=== PATIENT | female | born 1985 | race Caucasian/White ===

== ENCOUNTER 2016-08-10 02:20 | Emergency (ER) | payer BC ==
[~2016-08-10] VITALS: Ht 160 cm; Wt 88.2 kg
[~2016-08-10 02:20] MED LIST: CLEOCIN300 MG PO; ESCITALOPRAM OX20 MG PO; MOTRIN800 MG PO
[2016-08-10 03:37] LABS: HEMATOCRIT 34.7 % (36.0-46.0); MCH 34.7 PG (29.0-34.0); MCHC 33.4 G/DL (30.0-36.0); MCV 103.9 FL (83-99); MEAN PLAT.VOLUME 10.9 uM^3 (9.5-12.4); PLATELET COUNT 107 K/uL (156-360); RBC DIS.WIDTH-CV 18.6 % (11.8-14.6); RED BLOOD COUNT 3.34 M/uL (3.80-5.20); WHITE BLOOD COUNT 2.2 K/uL (4.1-10.2)
[2016-08-10 03:43] LABS: ADD MIUA? YES; BILIRUBIN NEGATIVE; BLOOD LARGE; COLOR AMBER ((YELLOW)); GLUCOSE (STRIP) NEGATIVE; KETONES 20; LEUKOCYTES NEGATIVE; NITRITE POSITIVE; PROTEIN (STRIP) 30; SPECIFIC GRAVITY 1.024 (1.000-1.030)
[2016-08-10 03:44] LABS: CHLORIDE 107 mEq/L (99-109); POTASSIUM 3.5 mEq/L (3.7-5.4); SODIUM 138 mEq/L (136-147)
[2016-08-10 03:47] LABS: GLUCOSE 96 mg/dL (70-99)
[2016-08-10 03:48] LABS: ANION GAP 10 MEQ/L (2-14)
[2016-08-10 03:49] LABS: TOTAL BILIRUBIN 0.9 mg/dL (0.0-1.0)
[2016-08-10 03:50] LABS: GFR ESTIMATE (CALCULATED) > 59 mL/min/
[2016-08-10 03:51] LABS: ALKALINE PHOSPHATASE 103 IU/L (3-129)
[2016-08-10 03:52] LABS: UREA NITROGEN (BUN) 13 mg/dL (9-23)
[2016-08-10 03:54] LABS: SALICYLATE < 5.0 MG/DL (15-30)
[2016-08-10 03:59] LABS: BACTERIA 1+ /HPF; CASTS NONE SEEN /LPF; CRYSTALS NONE SEEN; EPITHELIAL CELLS RARE /HPF; MUCUS NONE SEEN /LPF; RED BLOOD CELLS 30-40 /HPF (0-5); UCUL ADDED? NO; WHITE BLOOD CELLS 0-5 /HPF (0-5)
[2016-08-10 04:00] LABS: QUANTITATIVE HCG < 4.0 MIU/ML
[2016-08-10 05:50] LABS: APPEARANCE CLEAR/COLORLESS; RED CELL AREA COUNTED 18; RED CELL COUNT 0 /MM^3 (0-1); RED CELL DILUTION 1; WBC DILUTION 1; WHITE CELL RAW COUNT 0
[2016-08-10 05:51] LABS: CSF EOSINOPHILS ND % (0-25); MONONUCLEAR WBC'S ND % (50-90); POLYNUCLEAR WBC'S ND % (0-3); WBC AREA COUNTED 18; WHITE CELL COUNT 0 /MM^3 (0-5)
[2016-08-10 05:52] LABS: SPINAL FLD COMMENT NO WBC SEEN
[2016-08-10] MEDS ORDERED: FIORICET 50-301 EACH PO (05:59)
[2016-08-10] MEDS ORDERED: ZOFRAN4 MG PO (05:59)
[2016-08-10] MEDS ORDERED: BACTRIM,SEPT1 TABLET PO (05:59)
[2016-08-10 06:25] VITALS: BP 126/91
[2016-08-10 06:43] LABS: EOSINOPHIL (%) 0 % (0-5); HEMATOLOGY COMMENT 1 SMEAR COMPATIBLE; LYMPHOCYTE COUNT 1.1 K/uL (1.0-2.8); MONOCYTE (%) 9.4 % (3-12); MONOCYTE COUNT 0.2 K/uL (0-0.8); NEUTROPHIL COUNT 0.9 K/uL (1.8-6.4); PLAT.SUFFICIENCY DECREASED; USER ID STC
== END 2016-08-10 06:33 | disposition home or self-care (01) ==
LOC: EME 02:20
PROVIDERS: Emergency Medicine
PROC: 009U3ZX Drainage of Spinal Canal, Percutaneous Approach, Diagnostic (ICD-10-PCS; principal; 2016-08-10)
DX: R51 Headache (principal); N39.0 Urinary tract infection, site not specified; R50.9 Fever, unspecified
CPT/HCPCS: 74176; 80053; 81003; 82945; 84157; 84702; 85025; 87070; 87205; 87651 90; 89051; 99281; 99284; G0480; J1100; J1885; J2765; J7030